=== PATIENT | male | born 1995 | race Caucasian/White ===

== ENCOUNTER 2022-06-02 18:23 | Emergency (ER) | payer BC ==
[2022-06-02] MEDS ORDERED: Diphtheria,Pertussis(Acell),Tetanus Vaccine 0.5 ML Syringe IM ONE (18:55)
== END 2022-06-02 19:02 | disposition home or self-care (01) ==
LOC: DL.ED 18:23
DX: S61.213A Laceration without foreign body of left middle finger without damage to nail, initial encounter (principal); Z23 Encounter for immunization; W26.8XXA Contact with other sharp object(s), not elsewhere classified, initial encounter
CPT/HCPCS: 90471; 90715; 99282